=== PATIENT | female | born 1970 | race African-American/Black ===

== ENCOUNTER 2017-04-07 22:52 | Observation (INO) | payer OTHER ==
[2017-04-07 22:55] VITALS: BP 235/112; PULSE 79; RESP 16; TEMP 98.8; O2SAT 98
[2017-04-07 23:21] VITALS: BP 185/107; PULSE 75; RESP 18; O2SAT 100
--- NOTE | 2017-04-07 23:32 | PD ---
HPI Chief Complaint: Chest Pain Time Seen by Provider: 23:30 Travel History International Travel<30 days: No Contact w/Intl Traveler<30days: No Traveled to known affect area: No History of Present Illness HPI 46-year-old female came to the emergency room with history of substernal chest pressure that has been going on and off for past 2 days. She was getting ready to go to work today when it started coming back again and decided to come to the emergency room. Patient says normally she does not get chest pain. No aggravating or relieving factors identified. No radiation of the pain. Patient is a diabetic and history of hypertension. She smokes occasionally. No family history of heart attack. Patient had a stress test more than 10 years ago which was negative. She was significantly hypertensive in triage. Her blood pressure has come down somewhat after she was brought into the room. [facility] Past Medical History Narrative Medical List of her past medical, surgical, social and family history is reviewed from the nursing note. Diabetes: Yes Patient Takes Glucophage: Yes (METFORMIN ) Diminished Hearing: No Hypertension: Yes ?: Not Past Surgical History Surgical History: No Previous Surgery Social History Alcohol Use: No Tobacco Use: Yes (BLACK AND MILDS ) Substance Use: No Allergies-Medications (Allergen,Severity, Reaction): Coded Allergies: No Known Allergies (Unverified , 04/07/17) Comments No known drug allergies. Reported Meds & Prescriptions Reported Meds & Active Scripts Active Zithromax (Azithromycin) 250 Mg Tab 250 Mg PO DIRECTED Take 2 tabs (500 mg) on day 1 then 1 tab daily x 4 days. Narrative Medication Awaiting for the nurse to do the med reconciliation. Review of Systems Except as stated in HPI: all other systems reviewed are Neg Cardiovascular: Positive: Chest Pain or Discomfort Physical Exam Narrative GENERAL: Awake, alert, morbidly obese, mild distress SKIN: Focused skin assessment warm/dry. HEAD: Atraumatic. Normocephalic. EYES: Pupils equal and round. No scleral icterus. No injection or drainage. ENT: No nasal bleeding or discharge. Mucous membranes pink and moist. NECK: Trachea midline. No JVD. CARDIOVASCULAR: Regular rate and rhythm. No murmur appreciated. RESPIRATORY: No accessory muscle use. Clear to auscultation. Breath sounds equal bilaterally. GASTROINTESTINAL: Abdomen soft, non-tender, nondistended. Hepatic and splenic margins not palpable. MUSCULOSKELETAL: No obvious deformities. No clubbing. No cyanosis. No edema. NEUROLOGICAL: Awake and alert. No obvious cranial nerve deficits. Motor grossly within normal limits. Normal speech. PSYCHIATRIC: Appropriate mood and affect; insight and judgment normal. Data Data Last Documented VS Vital Signs Date Time Temp Pulse Resp B/P (MAP) Pulse Ox O2 Delivery O2 Flow Rate FiO2 04/08/17 00:21 80 16 175/91 (119) 98 04/07/17 22:55 98.8 Orders Orders Electrocardiogram (04/07/17 23:36) Basic Metabolic Panel (Bmp) (04/07/17 23:36) Ckmb (Isoenzyme) Profile (04/07/17 23:36) Complete Blood Count With Diff (04/07/17 23:36) Magnesium (Mg) (04/07/17 23:36) Prothrombin Time / Inr (Pt) (04/07/17 23:36) Troponin I (04/07/17 23:36) Chest, Single Ap (04/07/17 23:36) Ecg Monitoring (04/07/17 23:36) Bilateral Bp Monitoring (04/07/17 23:36) Iv Access Insert/Monitor (04/07/17 23:36) Oximetry (04/07/17 23:36) Oxygen Administration (04/07/17 23:36) Aspirin Chew (Aspirin Chew) (04/07/17 23:45) Sodium Chloride 0.9% Flush (Ns Flush) (04/07/17 23:45) Nitroglycerin Sl (Nitrostat Sl) (04/07/17 23:45) CKMB (04/07/17 23:45) CKMB% (04/07/17 23:45) Admit Order (Ed Use Only) (04/08/17 01:11) Place In Observation (04/08/17 01:11) Activity Bed Rest With Brp (04/08/17 01:11) Vital Signs (Adult) Q4H (04/08/17 01:11) Cardiac Rhythm .As Directed (04/08/17:11) Notify Dr: Other .PRN (04/08/17 01:11) Notify . Parameters (04/08/17:11) Resp Oxygen Nasal Cannula (04/08/17 ) Diet Heart Healthy (04/08/17 Breakfast) Ckmb (Isoenzyme) Profile (04/08/17 01:11) Ckmb (Isoenzyme) Profile (04/08/17 04:11) Troponin I (04/08/17 01:11) Troponin I (04/08/17 04:11) Electrocardiogram (04/08/17 01:11) Electrocardiogram (04/08/17 04:11) ^ Obtain (04/08/17 01:11) Sodium Chloride 0.9% Flush (Ns Flush) (04/08/17 01:15) Sodium Chloride 0.9% Flush (Ns Flush) (04/08/17 09:00) Acetaminophen (Tylenol) (04/08/17 01:15) Ondansetron Inj (Zofran Inj) (04/08/17 01:15) Nitroglycerin Sl (Nitrostat Sl) (04/08/17 01:15) Hole Filler / Telemetry ROXY.Q8H (04/08/17 01:11) CKMB (04/08/17 02:05) CKMB% (04/08/17 02:05) CKMB (04/08/17 05:47) CKMB% (04/08/17 05:47) Labs Laboratory Tests Test 04/07/17 23:45 White Blood Count 7.1 TH/MM3 Red Blood Count 4.30 MIL/MM3 Hemoglobin 12.9 GM/DL Hematocrit 38.4 % Mean Corpuscular Volume 89.3 FL Mean Corpuscular Hemoglobin 30.0 PG Mean Corpuscular Hemoglobin Concent 33.6 % Red Cell Distribution Width 12.5 % Platelet Count 270 TH/MM3 Mean Platelet Volume 8.6 FL Neutrophils (%) (Auto) 52.5 % Lymphocytes (%) (Auto) 36.1 % Monocytes (%) (Auto) 9.5 % Eosinophils (%) (Auto) 1.4 % Basophils (%) (Auto) 0.5 % Neutrophils # (Auto) 3.7 TH/MM3 Lymphocytes # (Auto) 2.6 TH/MM3 Monocytes # (Auto) 0.7 TH/MM3 Eosinophils # (Auto) 0.1 TH/MM3 Basophils # (Auto) 0.0 TH/MM3 CBC Comment DIFF FINAL Differential Comment Prothrombin Time 11.2 SEC Prothromb Time International Ratio 1.1 RATIO Blood Urea Nitrogen 10 MG/DL Creatinine 0.63 MG/DL Random Glucose 133 MG/DL Calcium Level 8.7 MG/DL Magnesium Level 1.7 MG/DL Sodium Level 137 MEQ/L Potassium Level 4.3 MEQ/L Chloride Level 105 MEQ/L Carbon Dioxide Level 25.1 MEQ/L Anion Gap 7 MEQ/L Estimat Glomerular Filtration Rate 122 ML/MIN Total Creatine Kinase 256 U/L Creatine Kinase MB 3.0 NG/ML Creatine Kinase MB % 1.2 % Troponin I LESS THAN 0.02 NG/ML MDM Medical Decision Making Medical Screen Exam Complete: Yes Emergency Medical Condition: Yes Medical Record Reviewed: Yes Interpretation(s) Twelve-lead EKG was reviewed by me. Normal sinus rhythm, normal axis, nonspecific ST-T wave changes. Heart rate of 68 bpm. Differential Diagnosis ACS, non-STEMI, nonspecific chest pain Narrative Course 12:36 AM awaiting for the blood test results to come back. Patient was given aspirin and sublingual nitroglycerin. Blood pressure is coming down. Procedures EKG Prior to Arrival: No Diagnosis Primary Impression: Hypertensive crisis Additional Impression: Chest pain Qualified Codes: R07.9 - Chest pain, unspecified Admitting Information Admitting Physician Requests: Observation Scripts Azithromycin (Zithromax) 250 Mg Tab 250 MG PO DIRECTED for Infection, #6 TAB 0 Refills Take 2 tabs (500 mg) on day 1 then 1 tab daily x 4 days. Prov: Harmony Rowland 04/08/17 Nick Pinedo MD Apr 07, 2017 23:32
[2017-04-07] MEDS ORDERED: ASPIRIN 81 MG CHEW TAB PO ONE (23:45)
[2017-04-07] MEDS ORDERED: SODIUM CHLORIDE 0.9% FLUSH 10 ML FLUSH IVF PRN (23:45)
[2017-04-07] MEDS ORDERED: NITROGLYCERIN 0.4 MG SL 25 TABS/BTL SL ONE (23:45)
[2017-04-08] VITALS (7 sets, daily range): BP systolic 162–175; BP diastolic 79–99; PULSE 68–80; RESP 16–20; TEMP 96.5–97.8; O2SAT 96–99
[2017-04-08 00:37] LABS: AUTOMATED NEUTROPHIL # 3.7 TH/MM3 (1.8-7.7); BASOPHIL % 0.5 % (0.0-2.0); EOSINOPHIL # 0.1 TH/MM3 (0-0.4); EOSINOPHIL % 1.4 % (0.0-4.0); HEMATOCRIT 38.4 % (35.0-46.0); HEMOGLOBIN 12.9 GM/DL (11.6-15.3); LYMPH % 36.1 % (9.0-44.0); LYMPHOCYTE # 2.6 TH/MM3 (1.0-4.8); MEAN CELL VOLUME 89.3 FL (80.0-100.0); MEAN CORPUSCULAR HGB CONC 33.6 % (32.0-36.0); MEAN PLATELET VOLUME 8.6 FL (7.0-11.0); MONO % 9.5 % (0.0-8.0); MONOCYTE # 0.7 TH/MM3 (0-0.9); NEUT % 52.5 % (16.0-70.0); PLATELET COUNT 270 TH/MM3 (150-450); RED CELL DISTRIBUTION WIDTH 12.5 % (11.6-17.2); WHITE BLOOD COUNT 7.1 TH/MM3 (4.0-11.0)
--- NOTE | 2017-04-08 00:58 | RADRPT ---
EXAM DATE/TIME: 04/07/2017 23:49 [place] COMPARISON: No previous studies available for comparison. INDICATIONS : Chest pain. MEDICAL HISTORY : None. SURGICAL HISTORY : None. ENCOUNTER: Initial ACUITY: 2 days PAIN SCORE: 7/10 LOCATION: Bilateral chest FINDINGS: A single view of the chest demonstrates the lungs to be symmetrically aerated without evidence of mas s, infiltrate or effusion. The cardiomediastinal contours are unremarkable. Osseous structures are intact. CONCLUSION: 1. No acute findings. Mildly tortuous aorta. Russell Castro MD on April 08, 2017 at 0:53 Board Certified Radiologist. This report was verified electronically.
[2017-04-08 01:01] LABS: BICARBONATE 25.1 MEQ/L (21.0-32.0); BLOOD UREA NITROGEN 10 MG/DL (7-18); CALCIUM 8.7 MG/DL (8.5-10.1); CHLORIDE 105 MEQ/L (98-107); CREATININE 0.63 MG/DL (0.50-1.00); GLOMERULAR FILTRATION RATE 122 ML/MIN (>89); GLUCOSE,RANDOM 133 MG/DL (74-106); MAGNESIUM 1.7 MG/DL (1.5-2.5); SODIUM (NA) 137 MEQ/L (136-145); TROPONIN I LESS THAN 0.02 NG/ML (0.02-0.05)
[2017-04-08 01:09] LABS: INTERNATIONAL NORMALIZED RATIO 1.1 RATIO; PROTHROMBIN TIME - PATIENT 11.2 SEC (9.8-11.6)
[2017-04-08] MEDS ORDERED: ACETAMINOPHEN 500 MG CPLT PO PRN (01:15)
[2017-04-08] MEDS ORDERED: ONDANSETRON HCL 4 MG/2 ML VIAL IV PUSH PRN (01:15)
[2017-04-08] MEDS ORDERED: SODIUM CHLORIDE 0.9% FLUSH 10 ML FLUSH IV FLUSH PRN (01:15)
[2017-04-08] MEDS ORDERED: NITROGLYCERIN 0.4 MG SL 25 TABS/BTL SL PRN (01:15)
[2017-04-08 03:28] LABS: TROPONIN I LESS THAN 0.02 NG/ML (0.02-0.05)
[2017-04-08 07:33] LABS: TROPONIN I LESS THAN 0.02 NG/ML (0.02-0.05)
--- NOTE | 2017-04-08 08:55 | HHI.HP ---
HPI Primary Care Physician Dr. Jewell Weiss Chief Complaint Chest pain History of Present Illness 46-year-old female with known hypertension and type 2 diabetes presents to emergency room for further evaluation of chest pain. Onset 3 days ago. Location substernal. Characterized as "an elephant sitting on my chest." Severity moderate. Radiation to mid back. Duration generally last hours at a time. No associated symptoms as nausea, vomiting, or dyspnea. Does not hurt to take a deep breath. Endorses diaphoresis. No known precipitating or relieving factors. Chest discomfort occurred intermittently over last few days. A close friend encouraged her to seek further evaluation, therefore came to ER for further evaluation. Endorses current chest congestion with nonproductive cough since Sunday. No recent fever, chills, or illness. Denies similar pain in the past. Review of Systems General: No fatigue,weakness, fever, chills, or recent illness change in appetite. Has been in her general state of health. HEENT: No ANDERSON, no vision changes, no nasal congestion or drainage, no dysphasia CV: As states above, denying any current CP, pressure, or discomfort. No palpitations, intermittent leg pain, or dizziness. RESP: Recent chest congestion with rare nonproductive cough since Sunday. No wheeze or sputum production. No history of asthma. GI: No nausea, vomiting, bowel changes. Reports frequency periods of constipation. : No dysuria, urgency, frequency, or frequent UTIs. EXT: Occasional intermittent dependent lower leg edema, generally resolves with elevation of lower extremities. No paraesthesias MS: No discomfort, change in ROM, injury, recent fall, or trauma. NEURO: No difficulty with balance, LOC, motor/sensory deficits PSYCH: No anxiety, depression, suicidal ideation SKIN: No rashes, no concerning lesions Past Family Social History Allergies: Coded Allergies: No Known Allergies (Unverified , 04/07/17) Past Medical History Hypertension, type II diabetes Reported Medications Hypertension, non-insulin dependent type II diabetes Active Ordered Medications Current Medications Medications (Trade) Dose Ordered Sig/Malini Route Start Time Stop Time Status Last Admin (NS Flush) 2 ml UNSCH PRN IV FLUSH 04/08/17 01:15 (NS Flush) 2 ml BID IV FLUSH 04/08/17 09:00 (Tylenol) 500 mg Q4H PRN PO 04/08/17 01:15 04/08/17 03:39 (Zofran Inj) 4 mg Q6H PRN IV PUSH 04/08/17 01:15 (Nitrostat Sl) 0.4 mg Q5M PRN SL 04/08/17 01:15 (Aspirin) 325 mg DAILY PO 04/08/17 09:00 Family History Noncontributory for early onset cardiovascular disease Social History Known hypertension and diabetes. Known known hyperlipidemia or CAD. Recently began smoking Black/Mild cigars daily x2 weeks. Denies any alcohol or illegal drug use. Works two jobs. Endorses keeping active and walks local bridges as able. Past cardiac testing Treadmill ETT approximately 10 years ago. Physical Exam Vital Signs Vital Signs Date Time Temp Pulse Resp B/P (MAP) Pulse Ox O2 Delivery O2 Flow Rate FiO2 04/08/17 06:57 97.8 72 18 167/93 (117) 96 04/08/17 04:00 68 04/08/17 03:10 96.5 70 20 169/79 (109) 97 04/08/17 03:03 04/08/17 03:03 68 18 162/90 (114) 99 04/08/17 03:00 18 04/08/17 00:21 80 16 175/91 (119) 98 04/07/17 23:25 75 04/07/17 23:21 75 18 185/107 (133) 100 04/07/17 22:55 98.8 79 16 235/112 (153) 98 Physical Exam GENERAL: Alert WN, WD, NAD, pleasant, moderate obese, at Greek female HEAD: NC, AT EYES: Sclera clear, conjunctiva without injection, pupils equal and round ENT: Mucous membranes pink and moist CV: RRR, without murmur, rub, gallop, no JVD, S1-S2 no S3-S4. Chest wall nontender with palpation. RESP: Clear lungs throughout bilateral, no crackles, wheeze, rhonchi, symmetrical chest rise, nonlabored, able to speak in full sentences ABD: Soft, NT, ND, no masses, positive bowel tones EXT: Pulses +24, no dependent edema MS: Normal tone 4 extremities, no obvious deformities, full range of motion NEURO: CN II through CN XII grossly intact, motor strength 5/5 PSYCH: A+O 3, pleasant affect, appropriate speech and mood. SKIN: Normal turgor, normal texture, no lesions, no rashes, multiple tattoos Laboratory Laboratory Tests Test 04/07/17 23:45 04/08/17 02:05 04/08/17 05:47 White Blood Count 7.1 Red Blood Count 4.30 Hemoglobin 12.9 Hematocrit 38.4 Mean Corpuscular Volume 89.3 Mean Corpuscular Hemoglobin 30.0 Mean Corpuscular Hemoglobin Concent 33.6 Red Cell Distribution Width 12.5 Platelet Count 270 Mean Platelet Volume 8.6 Neutrophils (%) (Auto) 52.5 Lymphocytes (%) (Auto) 36.1 Monocytes (%) (Auto) 9.5 Eosinophils (%) (Auto) 1.4 Basophils (%) (Auto) 0.5 Neutrophils # (Auto) 3.7 Lymphocytes # (Auto) 2.6 Monocytes # (Auto) 0.7 Eosinophils # (Auto) 0.1 Basophils # (Auto) 0.0 CBC Comment DIFF FINAL Differential Comment Prothrombin Time 11.2 Prothromb Time International Ratio 1.1 Blood Urea Nitrogen 10 Creatinine 0.63 Random Glucose 133 Calcium Level 8.7 Magnesium Level 1.7 Sodium Level 137 Potassium Level 4.3 Chloride Level 105 Carbon Dioxide Level 25.1 Anion Gap 7 Estimat Glomerular Filtration Rate 122 Total Creatine Kinase 256 164 140 Creatine Kinase MB 3.0 2.4 2.1 Creatine Kinase MB % 1.2 Troponin I LESS THAN 0.02 LESS THAN 0.02 LESS THAN 0.02 Result Diagram: 04/07/175 04/07/17 2345 Imaging Last 48 hours Impressions Chest X-Ray 04/07/17 2336 Signed Impressions: Service Date/Time: Friday, April 07, 2017 23:49 - CONCLUSION: 1. No acute findings. Mildly tortuous aorta. Russell Castro MD Course EKG NSR, normal axis, no st t segment changes Caprini VTE Risk Assessment Caprini VTE Risk Assessment: No/Low Risk (score <= 1) Caprini Risk Assessment Model Point Value = 1 Point Value = 2 Point Value = 3 Point Value = 5 Age 41-60 Minor surgery BMI > 25 kg/m2 Swollen legs Varicose veins or History of unexplained or recurrent spontaneous Oral contraceptives or hormone replacement Sepsis (< 1 month) Serious lung disease, including pneumonia (< 1 month) Abnormal pulmonary function Acute myocardial infarction Congestive heart failure (< 1 month) History of inflammatory bowel disease Medical patient at bed rest Age 61-74 Arthroscopic surgery Major open surgery (> 45 min) Laparoscopic surgery (> 45 min) Malignancy Confined to bed (> 72 hours) Immobilizing plaster cast Central venous access Age >= 75 History of VTE Family history of VTE Factor V Leiden Prothrombin [id number] Lupus anticoagulant Anticardiolipin antibodies Elevated serum homocysteine Heparin-induced thrombocytopenia Other congenital or acquired thrombophilia Stroke (< 1 month) Elective arthroplasty Hip, pelvis, or leg fracture Acute spinal cord injury (< 1 month) Prophylaxis Regimen Total Risk Factor Score Risk Level Prophylaxis Regimen 0-1 Low Early ambulation 2 Moderate Order ONE of the following: *Sequential Compression Device (SCD) *Heparin 5000 units SQ BID 3-4 Higher Order ONE of the following medications: *Heparin 5000 units SQ TID *Enoxaparin/Lovenox 40 mg SQ daily (WT < 150 kg, CrCl > 30 mL/min) *Enoxaparin/Lovenox 30 mg SQ daily (WT < 150 kg, CrCl > 10-29 mL/min) *Enoxaparin/Lovenox 30 mg SQ BID (WT < 150 kg, CrCl > 30 mL/min) AND/OR *Sequential Compression Device (SCD) 5 or more Highest Order ONE of the following medications: *Heparin 5000 units SQ TID (Preferred with Epidurals) *Enoxaparin/Lovenox 40 mg SQ daily (WT < 150 kg, CrCl > 30 mL/min) *Enoxaparin/Lovenox 30 mg SQ daily (WT < 150 kg, CrCl > 10-29 mL/min) *Enoxaparin/Lovenox 30 mg SQ BID (WT < 150 kg, CrCl > 30 mL/min) AND *Sequential Compression Device (SCD) Assessment and Plan Assessment and Plan #1 Atypical chest pain-admitted to chest pain center. Ruled out with 2 sets of EKGs and cardiac enzymes, third set pending. Monitor on telemetry overnight. Will be seen and evaluated by dr. Guillermo Ball. discussed likelihood of completing exercise cardiac stress testing later this morning.This will be determined after evaluation by tax map technician. Patient is agreeable to plan of care. #2 History of hypertension-discussed importance of tight blood pressure control , smoking cessation, adapting a low sodium diet. #3 History of type II diabetes-discussed importance of tight glucose control, benefits of daily activity, lifestyle modifications to include dietary changes and decreasing weight and keeping all follow up PCP appointments. #4 Tobacco use-show encouraged and stressed the importance of tobacco cessation. Instructed to quit smoking. Harmony Rowland Apr 08, 2017 08:55
[2017-04-08] MEDS ORDERED: SODIUM CHLORIDE 0.9% FLUSH 10 ML FLUSH IV FLUSH SCH (09:00)
[2017-04-08] MEDS ORDERED: ASPIRIN 325 MG TAB PO SCH (09:00)
--- NOTE | 2017-04-08 09:46 | PD.CARD.PN ---
Subjective Subjective Remarks Very pleasant 46-year-old lady with history of diabetes and hypertension. 2 days ago she began to notice episodes of pressure in the middle of her chest that seemed to radiate through to her back. She felt if she could "crack" her back she would get relief. These episodes were also associated with some sense of clamminess or diaphoresis. However she also states that she has been very congested with a cough and some greenish hard sputum. She is also been exposed to a good bit of the flu as she works as a valet cashier at [employer]. She has also been under a considerable amount of stress, is trying to work 2 jobs, mother from complications of diabetes, and older brother just went on dialysis as complication of diabetes. She is very concerned about taking care of herself managing her high blood pressure and her diabetes. Objective Medications Current Medications Medications (Trade) Dose Ordered Sig/Malini Route Start Time Stop Time Status Last Admin (NS Flush) 2 ml UNSCH PRN IV FLUSH 04/08/17 01:15 (NS Flush) 2 ml BID IV FLUSH 04/08/17 09:00 04/08/17 09:15 (Tylenol) 500 mg Q4H PRN PO 04/08/17 01:15 04/08/17 03:39 (Zofran Inj) 4 mg Q6H PRN IV PUSH 04/08/17 01:15 (Nitrostat Sl) 0.4 mg Q5M PRN SL 04/08/17 01:15 (Aspirin) 325 mg DAILY PO 04/08/17 09:00 04/08/17 09:14 Vital Signs / I&O Vital Signs Date Time Temp Pulse Resp B/P (MAP) Pulse Ox O2 Delivery O2 Flow Rate FiO2 04/08/17 06:57 97.8 72 18 167/93 (117) 96 04/08/17 04:00 68 04/08/17 03:10 96.5 70 20 169/79 (109) 97 04/08/17 03:03 04/08/17 03:03 68 18 162/90 (114) 99 04/08/17 03:00 18 04/08/17 00:21 80 16 175/91 (119) 98 04/07/17 23:25 75 04/07/17 23:21 75 18 185/107 (133) 100 04/07/17 22:55 98.8 79 16 235/112 (824) 16 Physical Exam GENERAL: Well-nourished well-developed but obese black lady SKIN: Warm and dry. HEAD: Atraumatic. Normocephalic. EYES: Pupils equal and round. No scleral icterus. No injection or drainage. ENT: No nasal bleeding or discharge. Mucous membranes pink and moist. NECK: Trachea midline. No JVD. CARDIOVASCULAR: Regular rate and rhythm. No gallops or rubs but a soft 2/6 systolic murmur along the left sternal border RESPIRATORY: No accessory muscle use. Clear to auscultation. Breath sounds equal bilaterally. GASTROINTESTINAL: Abdomen soft, non-tender, nondistended. Hepatic and splenic margins not palpable. MUSCULOSKELETAL: Extremities without clubbing, cyanosis, or edema. No obvious deformities. NEUROLOGICAL: Awake and alert. No obvious cranial nerve deficits. Motor grossly within normal limits. Five out of 5 muscle strength in the arms and legs. Normal speech. PSYCHIATRIC: Appropriate mood and affect; insight and judgment normal. Laboratory Laboratory Tests Test 04/07/17 23:45 04/08/17 02:05 04/08/17 05:47 White Blood Count 7.1 TH/MM3 Red Blood Count 4.30 MIL/MM3 Hemoglobin 12.9 GM/DL Hematocrit 38.4 % Mean Corpuscular Volume 89.3 FL Mean Corpuscular Hemoglobin 30.0 PG Mean Corpuscular Hemoglobin Concent 33.6 % Red Cell Distribution Width 12.5 % Platelet Count 270 TH/MM3 Mean Platelet Volume 8.6 FL Neutrophils (%) (Auto) 52.5 % Lymphocytes (%) (Auto) 36.1 % Monocytes (%) (Auto) 9.5 % Eosinophils (%) (Auto) 1.4 % Basophils (%) (Auto) 0.5 % Neutrophils # (Auto) 3.7 TH/MM3 Lymphocytes # (Auto) 2.6 TH/MM3 Monocytes # (Auto) 0.7 TH/MM3 Eosinophils # (Auto) 0.1 TH/MM3 Basophils # (Auto) 0.0 TH/MM3 CBC Comment DIFF FINAL Differential Comment Prothrombin Time 11.2 SEC Prothromb Time International Ratio 1.1 RATIO Blood Urea Nitrogen 10 MG/DL Creatinine 0.63 MG/DL Random Glucose 133 MG/DL Calcium Level 8.7 MG/DL Magnesium Level 1.7 MG/DL Sodium Level 137 MEQ/L Potassium Level 4.3 MEQ/L Chloride Level 105 MEQ/L Carbon Dioxide Level 25.1 MEQ/L Anion Gap 7 MEQ/L Estimat Glomerular Filtration Rate 122 ML/MIN Total Creatine Kinase 256 U/L 164 U/L 140 U/L Creatine Kinase MB 3.0 NG/ML 2.4 NG/ML 2.1 NG/ML Creatine Kinase MB % 1.2 % Troponin I LESS THAN 0.02 NG/ML LESS THAN 0.02 NG/ML LESS THAN 0.02 NG/ML Imaging Last 24 hours Impressions Chest X-Ray 04/07/17 9766 Signed Impressions: Service Date/Time: Friday, April 07, 2017 23:49 - CONCLUSION: 1. No acute findings. Mildly tortuous aorta. Russell Castro MD Assessment and Plan Problem List: (1) Diabetes ICD Codes: E11.9 - Type 2 diabetes mellitus without complications Status: Chronic (2) Hypertension ICD Codes: I10 - Essential (primary) hypertension Status: Chronic (3) Chest pain ICD Codes: R07.9 - Chest pain, unspecified Status: Acute Plan: We will rule out ACS using chest pain protocol then ETT If negative discharge with instructions for OTC cold medication and antibiotic Encouraged to pursue healthy lifestyle with no smoking exercise and weight reduction Problem Qualifiers (1) Chest pain: Qualified Codes: R07.9 - Chest pain, unspecified Guillermo Ball MD Apr 08, 2017 09:46
--- NOTE | 2017-04-08 10:16 | EKG ---
Date Performed: 04/08/2017 Time Performed: 02:47:39 PTAGE: 46 years EKG: Sinus rhythm NORMAL ECG NO CHANGE NO PREVIOUS TRACING DOCTOR: Guillermo Ball Interpretating Date/Time 04/08/2017 10:15:35
--- NOTE | 2017-04-08 10:17 | EKG ---
Date Performed: 04/07/2017 Time Performed: 23:17:40 PTAGE: 46 years EKG: Sinus rhythm NORMAL ECG NO PREVIOUS TRACING DOCTOR: Guillermo Ball Interpretating Date/Time 04/08/2017 10:16:30
[2017-04-08] MEDS ORDERED: ZITH250T PO (11:37)
--- NOTE | 2017-04-08 11:37 | HHI.DCPOC ---
Discharge Care Plan Diagnosis: (1) Atypical chest pain Goals to Promote Your Health * To prevent worsening of your condition and complications * To maintain your health at the optimal level Directions to Meet Your Goals Take your medications as prescribed Follow your dietary instruction Follow activity as directed Keep your appointments as scheduled Take your immunizations and boosters as scheduled If your symptoms worsen call your PCP, if no PCP go to Urgent Care Center or Emergency Room Smoking is Dangerous to Your Health. Avoid second hand smoke Call the 24-hour hour crisis hotline for domestic abuse at Harmony Rowland Apr 08, 2017 11:37
--- NOTE | 2017-04-08 15:50 | TR ---
Date Performed: 04/08/2017 Time Performed: 10:39:46 DOCTOR: Guillermo Ball DRUG LIST: CLINICAL HISTORY: CHEST PAIN REASON FOR TEST: Chest pain REASON FOR ENDING: OBSERVATION: CONCLUSION: Denny protocol completed. Stopped sec to reaching target heart rate and leg fatigue. Maximum KZ=150 Maximum CM=876/80 Total Exercise Time=8:01Target HR Achieved=85.0%. No reprod chest p ain. No ectopy. Good exercise tolerance. ST and T waves changes are nondiagnostic. Normal bp response . Recovery quick and unremarkable. COMMENTS:
--- NOTE | 2017-04-10 18:13 | EKG ---
Date Performed: 04/08/2017 Time Performed: 09:19:24 PTAGE: 46 years EKG: Sinus rhythm NORMAL ECG Since PREVIOUS TRACING , no significant change noted PREVIOUS TRACIN04/08/2017 02.47 DOCTOR: Lauren Hi Interpretating Date/Time 04/10/2017 18:11:02
== END 2017-04-08 17:15 | disposition home or self-care (01) ==
LOC: NEPE 22:52 → NEDA 04-08 01:13 → NEPFCDU 04-08 03:02
PROVIDERS: ADMIT Internal Medicine Interventional Cardiology; ATTEND Internal Medicine Interventional Cardiology
DX: R07.9 Chest pain, unspecified (principal); I16.9 Hypertensive crisis, unspecified; I10 Essential (primary) hypertension; E78.5 Hyperlipidemia, unspecified; E11.9 Type 2 diabetes mellitus without complications; I25.10 Atherosclerotic heart disease of native coronary artery without angina pectoris; F17.200 Nicotine dependence, unspecified, uncomplicated; Z83.3 Family history of diabetes mellitus
CPT/HCPCS: 71045; 80048; 82550; 82552; 83735; 84484; 85025; 85610; 93005; 93017; 99285; G0378

== ENCOUNTER 2017-12-07 05:54 | Inpatient (IN) ==
[2017-12-07] MEDS ORDERED: Metoprolol Tartrate 25 MG Tablet PO ONE (06:17)
[2017-12-07] MEDS ORDERED: Chlorhexidine Gluconate 2% 1 Pack (2 Cloths) TOPICAL ONE (06:17)
[2017-12-07] MEDS ORDERED: ceFAZolin 2 GM IV; once IV.SIG ONE (06:30)
[2017-12-07] MEDS ORDERED: Sugammadex Inj 200 MG/2 ML Vial IV.PUSH ONE (06:46)
[2017-12-07] MEDS ORDERED: Fluorescein Sod 10% Inj 500 MG/5 ML Ampul IV.PUSH ONE (06:49)
[2017-12-07] MEDS ORDERED: Bupivacaine/Epinephrine 0.5% Inj 50 ML Vial ONE (06:51)
[2017-12-07] MEDS ORDERED: Sodium Chlor 0.9% Inj 500 ML IV.SIG SCH (07:00)
[2017-12-07] MEDS ORDERED: Famotidine PF Inj 20 MG/2 ML Vial ONE (07:19)
--- NOTE | 2017-12-07 07:34 | P.OP ---
- Preoperative Diagnosis (1) Intramural leiomyoma of uterus (2) Excessive and frequent menstruation with regular cycle (3) Secondary dysmenorrhea (4) Pelvic and perineal pain - Postoperative Diagnosis (1) Intramural leiomyoma of uterus (2) Excessive and frequent menstruation with regular cycle (3) Secondary dysmenorrhea (4) Pelvic and perineal pain Date of procedure: 12/07/17 Procedure: 1. laparoscopic supracervical hysterectomy converted to abdominal supracervical hysterectomy 2. bilateral salpingectomy Anesthesia: GETA Surgeon: Sharifa Hameed MD Lithographer Apprentice: OR Staff Estimated blood loss (mL): 600 IV fluids (mL): 1,400 (+ Iv antibiotics given prior to surgery) Pathology: other (uterus, fallopian tubes) Operation and Findings: Surgical findings: 1. multiple, very large fibroids extending to upper abdomen 2. normal ovaries 3. normal fallopian tubes Complications: none Condition: stable Disposition: PACU Descriptions of the procedure: I discussed the risks, benefits and alternatives of the procedure with the patient. Informed consent was obtained after questions were answered. She was then taken to the operating room with her IV running. She was placed in the supine position and was given general anesthesia without difficulties or complications. She was then placed in the dorsal lithotomy position and was prepped and draped in the usual sterile fashion. Attention was first turned to the patient's genital area. A bivalved speculum was introduced inside the patient's vagina. The anterior aspect of the cervix was grasped with a single tooth tenaculum for manipulation. The cervix was carefully dilated and electrocauterized with the Bovie. A uterine manipulator was carefully introduced inside her uterus. The rest of the instruments were removed from the patient's vagina. A sterile blue towel was used to cover the perineum. The surgeon changed gloves and attention was then turned to the patient's abdomen. A vertical umbilical incision was made with the scalpel. A 5 mm trocar was introduced inside the patient's abdomen under direct visualization. A pneumo -peritoneum was created with CO2 gas. The enlarged uterus and large fibroids were found to go up to the abdomen / close to the diaphragm. The decision was then made to discontinue the laparoscopic procedure and proceed with an open, abdominal hysterectomy. A Pfannenstiel skin incision was then made with the scalpel. The incision was extended to the fascia with the Bovie. The fascia was incised in the midline with a scalpel. The fascial incision was then extended sharply with Parks scissors. Next, the rectus muscles were dissected off the fascia with the Bovie and then in the midline with a hemostat. The peritoneum was identified and entered bluntly. Lysis of adhesions was needed several times during the procedure in order to proceed with surgery. A [place] retractor was placed inside the patient's abdomen. Care was taken to place moist laparotomy sponges under the blades. The bowel was carefully packed away with moist laparotomy sponges. A bladder blade was also introduced inside the pelvic cavity. The left round ligament was identified, clamped, transected and suture ligated with 0-Vicryl. Adequate hemostasis was noted. The left utero-ovarian ligament was clamped, cut and suture ligated with 0-Vicryl. The same was done on the right side after lysis of adhesions allowed the procedure to continue. Good hemostasis was noted as well. At this point, the uterus was pulled out of the abdomen. A tourniquet was placed at the level of the utero-cervical junction. To improve visualization, multiple fibroids were removed with the Bovie. The uterus was then returned to the the abdomen. With much improved visualization, the tissues along the uterus were serially doubly clamped, transected and suture ligated times two with 0- Vicryl. Good hemostasis was noted. The utero-cervical junction was transected with the Bovie. The tissues were removed and sent to pathology. Running, locked stitches of 0-Vicryl were used along the cervix and vaginal cuff angles in order to achieve excellent hemostasis. The endocervix was electrocauterized with the Bovie. Copious irrigation was done several times. The ureters were identified several times during the surgery and found to be away from the surgical sites. Iridescent dye was given at the beginning of the surgery; no spillage or blockage was noted. The fallopian tubes were carefully removed by clamping, transecting and suture ligating the mesosalpinx. The ovaries were left in situ (as requested by patient ). Excellent hemostasis was noted at all the surgical sites and pedicles. Surgicel powder was placed over the cervix and surgical sites. Interseed was also placed over the cervix. All the instruments were removed from the patient' s pelvis and vagina. The instrument count was correct times three. The bowel was carefully inspected and noted to be intact. The peritoneum was closed with running stitches of 0 Vicryl. The rectus muscles were reapproximated with running stitches of 0-Vicryl. The fascia was reapproximated with running stitches of looped 0-PDS. The subcutaneous tissues were copiously irrigated and reapproximated with running stitches using 2-0 Vicryl after placing CellerateRxSurgical powder. The skin was reapproximated with running stitches of Monocryl on a curved needle. Mastisol and steri strips were placed over the incision. The umbilical skin incision was also closed with Monocryl and covered with band aids. The patient was successfully extubated and taken to PACU in stable condition. Note: I discussed surgical findings and surgical procedures with patient's friend. Her questions were answered. She verbalized understanding and agreement to the procedures done.
[2017-12-07] MEDS ORDERED: Glycopyrrolate Inj 1 MG/5 ML Syringe IV.PUSH ONE (07:36)
[2017-12-07] MEDS ORDERED: Ketorolac Inj 30 MG/ML (IVP) Vial IV.PUSH ONE ×2 (07:36→14:20)
[2017-12-07] MEDS ORDERED: Neostigmine Inj 5 MG/5 ML Syringe IV.PUSH ONE (07:36)
[2017-12-07] MEDS ORDERED: Labetalol HCl Inj 100 MG/20 ML Vial IV.CONT ONE (07:36)
[2017-12-07] MEDS ORDERED: Lidocaine PF 1% Inj 5 ML Syringe OTHER ONE (07:36)
[2017-12-07] MEDS ORDERED: Zolpidem Tartrate 5 MG Tablet PO PRN ×2 (10:54→21:00)
[2017-12-07] MEDS ORDERED: LORazepam 0.5 MG Tablet PO PRN ×2 (10:54→11:55)
[2017-12-07] MEDS ORDERED: fentaNYL Citrate Inj 100 MCG/2 ML Ampul ONE ×2 (11:43)
[2017-12-07] MEDS ORDERED: Morphine Inj 4 MG/ML Vial ONE (11:44)
[2017-12-07] MEDS ORDERED: *morphine SULFATE 4 MG/ML PERIprocedure ONLY ONE ×2 (11:55→11:59)
[2017-12-07] MEDS ORDERED: Ibuprofen 600 MG Tablet PO PRN (11:55)
[2017-12-07] MEDS ORDERED: diphenhydrAMINE HCl 50 MG/ML VIAL IV.PUSH ONE (12:06)
[2017-12-07] MEDS ORDERED: LORazepam 1 MG Tablet PO PRN (14:21)
[2017-12-07] MEDS ORDERED: *morphine SULFATE 2 MG/ML PERIprocedure ONLY IV.PUSH PRN ×2 (14:36→14:40)
[2017-12-07] MEDS ORDERED: Dextrose 50% in Water 50 ML Vial IV.PUSH PRN (14:51)
[2017-12-07] MEDS ORDERED: Morphine Inj 4 MG/ML Vial IV.PUSH PRN (15:09)
[2017-12-07] MEDS: Lisinopril 20 MG Tablet PO SCH ×3 (15:25→23:46)
[2017-12-07] MEDS ORDERED: Labetalol HCl Inj 100 MG/20 ML Vial IV.PUSH ONE ×3 (17:00→21:15)
[2017-12-07] MEDS: Morphine Inj 4 MG/ML Vial IV.PUSH PRN ×2 (18:49→23:04)
--- NOTE | 2017-12-07 19:36 | ECG ---
Date Performed: 12/07/2017 Time Performed: 06:30:28 PTAGE: 47 years EKG: Sinus rhythm NORMAL ECG INTERPRETATION BASED ON A DEFAULT AGE OF 40 YEARS PREVIOUS TRACING : 04/08/2017 09.19 Since the previous tracing, no significant change not ed DOCTOR: Micha Aguillon Interpretating Date/Time 12/07/2017 19:35:45
[2017-12-07] MEDS ORDERED: *Labetalol HCl Inj 100 MG/20 ML Vial PERIprocedural Use ONLY IV.PUSH ONE ×2 (20:48→21:15)
[2017-12-07] MEDS ORDERED: Docusate Sodium 100 MG Capsule PO SCH (21:00)
[2017-12-07] MEDS: Docusate Sodium 100 MG Capsule PO SCH (21:23)
[2017-12-07] MEDS: Insulin NovoLIN Regular Correctional Sugar Inj SQ SCH (21:36)
[2017-12-08 06:22] LABS: Baso % (Auto) 0.1 % (0.0-2.0); Hematocrit 33.7 % (35.0-46.0); Hemoglobin 11.3 gm/dL (11.6-15.3); Lymph # (Auto) 1.7 th/mm3 (1.0-4.8); Lymph % (Auto) 13.8 % (9.0-44.0); Mean Corpuscular HGB Conc 33.4 % (32.0-36.0); Mean Corpuscular Hemoglobin 30.4 pg (27.0-34.0); Mean Platelet Volume 7.8 fL (7.0-11.0); Mono # (Auto) 1.4 th/mm3 (0.0-0.9); Neut # (Auto) 9.4 th/mm3 (1.8-7.7); Neut % (Auto) 75.1 % (16.0-70.0); Platelet Count 208 th/mm3 (150-450); Red Blood Count 3.71 mil/mm3 (4.00-5.30); Red Cell Distribution Width 12.5 % (11.6-17.2); White Blood Count 12.5 th/mm3 (4.0-11.0)
[2017-12-08 06:48] LABS: Anion Gap 9 meq/L (5-15); Blood Urea Nitrogen 10 mg/dL (7-18); Calcium 7.8 mg/dL (8.5-10.1); Carbon Dioxide 26.8 meq/L (21.0-32.0); Chloride 97 meq/L (98-107); Glomerular Filtration Rate Greater Than 89 mL/min (>89); Glucose,Random 136 mg/dL (74-106); Potassium 3.2 meq/L (3.5-5.1); Sodium 133 meq/L (136-145)
--- NOTE | 2017-12-08 08:17 | P.PNOB ---
Assessment and Plan (1) Excessive and frequent menstruation with regular cycle Status: Acute (2) Intramural leiomyoma of uterus Status: Acute - Postoperative Procedures Operation Date: 12/07/17 07:30 Actual Procedures Side Surgeon p ABDOMINAL SUPRACERVICAL HYSTERECTOMY WITH BILATERAL SALPINGECTOMY Sharifa Hameed MD Postoperative day: 1 Postoperative status: doing well Postoperative plan: routine post-op care, other (called Medicine consult to review BP issue / review home medication / recommendations) - Time Spent With Patient Total time spent is greater than 50% in coordination of care (as documented) at patient's floor/unit and/or counseling patient: 25 - 35 minutes Subjective Subjective: patient reports feeling better, pain is well controlled, patient is tolerating oral intake (the patient reports mild chest pain during breakfast as well as "tingling in her hands") Physical Exam Vital signs: Temp Pulse Resp BP Pulse Ox 99.5 F 88 18 179/86 H 97 12/08/17 06:03 12/08/17 06:03 12/08/17 06:03 12/08/17 06:03 12/08/17 06:03 Narrative: Patient's BPs have remained elevated despite IV Labetolol and despite increasing her regular PO medications. Her BPs during surgery were normal. Patient is walking in the h[place]; reports feeling "great" except for the chest pain during breakfast. - Constitutional no acute distress, obese, cooperative - Routine Abdominal Exam Present: soft, normoactive bowel sounds Comments: incision C/D/I - Urinary Catheter Management Indwelling Urethral Catheter Cath placed during this visit: yes Urethral indwelling: No Insertion date: 12/07/17 Insertion time: 08:21 Results - Labs CBC & Chem 7: 12/08/17 06:13 12/08/17 06:13 Labs: Laboratory Results - last 24 hr 12/07/17 12/08/17 12/08/17 20:26 06:13 06:13 WBC 12.5 H RBC 3.71 L Hgb 11.3 L Hct 33.7 L MCV 91.0 MCH 30.4 MCHC 33.4 RDW 12.5 Plt Count 208 MPV 7.8 Neut % (Auto) 75.1 H Lymph % (Auto) 13.8 Person % (Auto) 11.0 H Eos % (Auto) 0.0 Baso % (Auto) 0.1 Neut # (Auto) 9.4 H Lymph # (Auto) 1.7 Person # (Auto) 1.4 H Eos # (Auto) 0.0 Baso # (Auto) 0.0 WBC Differential . Differential Comment Auto diff final Sodium 133 L Potassium 3.2 L Chloride 97 L Carbon Dioxide 26.8 Anion Gap 9 BUN 10 Creatinine 0.72 Estimated GFR Greater than 89 POC Glucose 169 H Random Glucose 136 H Calcium 7.8 L
[2017-12-08] MEDS: hydroCHLOROthiazide 25 MG Tablet PO SCH ×2 (09:55→18:18)
[2017-12-08] MEDS: Lisinopril 20 MG Tablet PO SCH (09:56)
[2017-12-08] MEDS: Docusate Sodium 100 MG Capsule PO SCH ×2 (09:56→20:40)
--- NOTE | 2017-12-08 11:46 | P.CONIM ---
History of Present Illness Service: [facility] Reason for Consult: HTN after surgery Primary Care Provider: Ji Sheffield MD History of Present Illness: This is a 47 year old obese female patient with a past medical history which includes HTN, DM type 2 and Leiomyoma who is S/P open abdominal supracervical hysterectomy with salpingectomy 12/[address] Hameed. We have been consulted to assist in management in post-op HTN. Patient report mild - moderate post op pain. Wanting to be DC'd home. Patient denies fevers, chills, N/V/D/C, SOB, chest pain, headache or visual changes. PMH: HTN, DM type 2 and Leiomyoma PSxH: open abdominal supracervical hysterectomy with salpingectomy 12/07/[address] Hameed tonsillectomy FMH: Mother has DM type 2 and CKD Father has DM type 2 Social history: ETOH rare quit smoking tobacco 09/2016 with a 20 pack year history Review of Systems All other systems reviewed negative except as stated in HPI [facility] - History History Provided By: Patient - Medical History Medical History: Medical History (Last Updated 12/07/17 @ 06:47 by Lorelei Petersen) Diabetes Fibroid, uterine GERD (gastroesophageal reflux disease) Miscarriage Snoring Wears glasses - Surgical History Surgical History: Surgical History (Last Updated 12/07/17 @ 06:47 by Lorelei Petersen) H/O dilation and curettage Hx of tonsillectomy - Tobacco History Second Hand Smoke Exposure: No Tobacco Use In Past 30 Days: Yes Smoking Status: Current every day smoker Tobacco Type: Cigarettes - Alcohol History How Often Do You Have a Drink Containing Alcohol: Monthly or less - Substance Use History Substance History: No History of Abuse - Travel History Recent Travel in the [place] Within the Last 8 Weeks: Yes Recent Travel Out of the Country Within the Last 8 Weeks: No Medications and Allergies Allergies Allergy/AdvReac Type Severity Reaction Status Date / Time No Known Allergies Allergy Verified 12/07/17 06:47 Home Medications Medication Instructions Recorded Confirmed Type metformin 750 mg PO BID 12/07/17 12/07/17 History Active Medications: Active Medications Dextrose (D50w Vial) 50 ml IV.PUSH UNSCH PRN PRN Reason: PER HYPOGLYCEMIA PROTOCOL Docusate Sodium (Colace) 100 mg PO BID [facility] Last Admin: 12/08/17 09:56 Dose: 100 mg Glucagon (Glucagon Inj) 1 mg OTHER PRN PRN PRN Reason: for Hypoglycemia Protocol Hydrochlorothiazide (Hydrodiuril) 25 mg PO BID@0900,1800 [facility] Last Admin: 12/08/17 09:55 Dose: 25 mg Lactated Ringer's (Lr 1000 Ml Inj) 1,000 mls @ 42 mls/hr IV.CONT .[id number] [facility] Ibuprofen (Motrin) 600 mg PO Q6H PRN PRN Reason: Pain 1-10 And/Or Fever >101 F Insulin Human Regular (Novolin R Correctional Sugar Inj) 0 units SQ ACHS [facility]; Protocol Last Admin: 12/07/17 21:36 Dose: 2 units Lisinopril (Prinivil) 40 mg PO BID [facility] Last Admin: 12/08/17 09:56 Dose: 40 mg Lorazepam (Ativan) 1 mg PO Q12HR PRN PRN Reason: ANXIETY Metformin HCl (Glucophage) 750 mg PO BID [facility] Last Admin: 12/08/17 09:56 Dose: 750 mg Miscellaneous (Pill Splitter) 1 each OTHER UNSCH PRN PRN Reason: SEE LABEL COMMENTS Morphine Sulfate (Morphine Inj) 2 mg IV.PUSH Q4H PRN PRN Reason: PAIN 3-5 Last Admin: 12/07/17 23:04 Dose: 2 mg Morphine Sulfate (Morphine Inj) 5 mg IV.PUSH Q4H PRN PRN Reason: PAIN 6-10 Ondansetron HCl (Zofran Inj) 4 mg IV.PUSH Q6H PRN PRN Reason: NAUSEA OR VOMITING Oxycodone/Acetaminophen (Percocet 5/325 Mg) 1 tab PO Q4H PRN PRN Reason: PAIN SCALE 1 TO 5 Oxycodone/Acetaminophen (Percocet 5/325 Mg) 2 tab PO Q4H PRN PRN Reason: PAIN SCALE 6 TO 10 Potassium Chloride (K-Dur) 20 meq PO BID [facility] Sodium Chloride (Ns Flush) 2 ml IV.FLUSH BID [facility] Last Admin: 12/08/17 09:23 Dose: 2 ml Sodium Chloride (Ns Flush) 2 ml IV.FLUSH PRN PRN PRN Reason: FLUSH AFTER USING IV ACCESS Zolpidem Tartrate (Ambien) 5 mg PO HS PRN PRN Reason: INSOMNIA Exam Vital signs: Vital Signs 12/07/17 11:45 12/07/17 12:00 12/07/17 12:15 Temperature Pulse Rate 67 72 71 Respiratory Rate 15 17 14 Blood Pressure 139/82 135/84 136/82 Pulse Oximetry 97 98 95 12/07/17 12:30 12/07/17 13:15 12/07/17 14:06 Temperature 98.5 F 98 F 98.1 F Pulse Rate 73 76 75 Respiratory Rate 19 18 16 Blood Pressure 143/75 H 149/78 H 180/94 H Pulse Oximetry 95 94 L 96 12/07/17 16:35 12/07/17 18:21 12/07/17 20:38 Temperature 100.1 F H Pulse Rate 86 82 90 Respiratory Rate 20 20 20 Blood Pressure 197/97 H 187/94 H 173/83 H Pulse Oximetry 95 96 98 12/07/17 23:00 12/08/17 06:03 12/08/17 09:45 Temperature 99.1 F 99.5 F 99.7 F H Pulse Rate 86 88 82 Respiratory Rate 14 18 18 Blood Pressure 170/87 H 179/86 H 148/79 H Pulse Oximetry 94 L 97 95 Intake & Output 12/07/17 12/08/17 12/08/17 18:59 06:59 18:59 Intake Total 1574 / 1574 0 / 0 Output Total 2200 / 2200 3100 / 3100 925 / 925 Balance -626 / -626 -3100 / -3100 -925 / -925 Intake: IV 334 / 334 0 / 0 LR 1000 mL Inj 1,000 ML @ 250 184 / 184 mls/hr IV.CONT .Q4H [facility] Rx#: [id number] Ofirmev Inj 1,000 mg In 100 ml 100 / 100 0 / 0 @ 400 mls/hr IV.SIG Q6H [facility] Rx# :[id number] Ancef 2 GM Premix Inj 2 gm In 50 / 50 50 ml @ 100 mls/hr IV.SIG ONCE ONE Rx#:[id number] Oral 240 / 240 Anesthesia Amount 1000 / 1000 Output: Urine 950 / 950 925 / 925 Estimated Blood Loss 600 / 600 Urine Amount (Catheter) 650 / 650 3100 / 3100 Indwelling Urethral Catheter 650 / 650 3100 / 3100 Narrative: GENERAL: This is a obese, well-developed patient, in no apparent distress. CARDIOVASCULAR: Regular rate and rhythm RESPIRATORY: Clear to auscultation. Breath sounds equal bilaterally. GASTROINTESTINAL: Abdomen soft,post op tenderness, nondistended. Normal active bowel sounds MUSCULOSKELETAL: Extremities without clubbing, cyanosis, or edema. NEURO: Alert & Oriented x4 to person, place, time, situation. Moves all ext x4 Results - Labs CBC & Chem 7: 12/08/17 06:13 12/08/17 06:13 Labs: Laboratory Results - last 24 hr 12/07/17 12/08/17 12/08/17 20:26 06:13 06:13 WBC 12.5 H RBC 3.71 L Hgb 11.3 L Hct 33.7 L MCV 91.0 MCH 30.4 MCHC 33.4 RDW 12.5 Plt Count 208 MPV 7.8 Neut % (Auto) 75.1 H Lymph % (Auto) 13.8 [place] % (Auto) 11.0 H Eos % (Auto) 0.0 Baso % (Auto) 0.1 Neut # (Auto) 9.4 H Lymph # (Auto) 1.7 [place] # (Auto) 1.4 H Eos # (Auto) 0.0 Baso # (Auto) 0.0 WBC Differential . Differential Comment Auto diff final Sodium 133 L Potassium 3.2 L Chloride 97 L Carbon Dioxide 26.8 Anion Gap 9 BUN 10 Creatinine 0.72 Estimated GFR Greater than 89 POC Glucose 169 H Random Glucose 136 H Calcium 7.8 L Assessment and Plan - Assessment (1) HTN (hypertension) Code(s): I10 - Essential (primary) hypertension Status: Acute Plan: This is a 47 year old obese female patient with a past medical history which includes HTN, DM type 2 and Leiomyoma who is S/P open abdominal supracervical hysterectomy with salpingectomy 12/[address] Hameed. We have been consulted to assist in management in post-op HTN. HTN Patient's home medication includes Lisinopril/HCTZ 14/02.5 Her in the hospital patient is on lisinopril 40 mg PO daily and HCTZ 25 daily Discussed with nursing staff to take BP manually with proper size cuff and recommend controlling patient's pain current BP 148/79, continue to monitor Add Norvasc 5 mg daily DM type 2 diabetic diet accuchecks ACHS with SSI coverage continue patient's home metformin BID Leiomyoma S/P open abdominal supracervical hysterectomy with salpingectomy 12/[address] Hameed further management per [employer] surgery DVT prophylaxis per surgery - Attending Attestation Patient examined. Assessment and plan formulated with Luz Maria Clinton PA-C. I agree with the above. Pt ambulating in the hallways. Pt had 1/2 turkey sandwich for dinner. Pt denies n/v. Pt has NOT yet passed gas since surgery and no BM yet. Pt c/o generalized abdominal gas pain. bowel sounds are high pitched. encourage ambulation Case d/w pt's bufferer, Dr. Hameed, this evening 12/08/17. Agree with increasing lisinopril/HCTZ to BID. Will start norvasc 5mg daily observe BP readings.
[2017-12-08] MEDS: Insulin NovoLIN Regular Correctional Sugar Inj SQ SCH ×2 (12:00→18:14)
[2017-12-08] MEDS: Ibuprofen 600 MG Tablet PO PRN ×2 (14:39→20:39)
[2017-12-08] MEDS: Simethicone 80 MG Chew Tablet PO PRN ×2 (14:40→20:40)
[2017-12-08] MEDS ORDERED: amLODIPine 5 MG Tablet PO ONE (20:05)
[2017-12-09 00:15] VITALS: O2SAT 94
[2017-12-09 05:38] VITALS: RESP 20
[2017-12-09 08:48] VITALS: BP 148/80; PULSE 71; TEMP 98.4
[2017-12-09] MEDS ORDERED: amLODIPine 5 MG Tablet PO SCH (09:00)
[2017-12-09] MEDS ORDERED: Lisinopril 20 MG Tablet PO SCH (09:00)
[2017-12-09] MEDS: hydroCHLOROthiazide 25 MG Tablet PO SCH (09:08)
[2017-12-09] MEDS: Docusate Sodium 100 MG Capsule PO SCH (09:09)
[2017-12-09] MEDS: Insulin NovoLIN Regular Correctional Sugar Inj SQ SCH (09:14)
[2017-12-09] MEDS: Simethicone 80 MG Chew Tablet PO PRN (09:16)
[2017-12-09] MEDS: Ibuprofen 600 MG Tablet PO PRN (09:16)
== END 2017-12-09 11:50 | disposition home or self-care (01) ==
LOC: HSDC 05:54 → HSDI 05:54 → OBSVTOIN 11:00 → H1EA 12:46
PROVIDERS: ADMIT Obstetrics & Gynecology; ATTEND Obstetrics & Gynecology
PROC: LAPLASH (ICD-10-PCS; 2017-12-07 07:36)